=== PATIENT | male | born 1970 | race Caucasian/White ===

== ENCOUNTER 2017-05-20 10:10 | Emergency (ER) | payer BC ==
[2017-05-20] MEDS ORDERED: Ondansetron 4 MG/2 ML SDV IVPUSH ONE (10:19)
[2017-05-20] MEDS ORDERED: HYDROmorphone 1 MG/ML Syringe IVPUSH ONE (10:19)
[2017-05-20] MEDS ORDERED: Sodium Chloride 0.9% 1,000 ML IV SCH ×2 (10:30→12:30)
[2017-05-20] MEDS ORDERED: Sodium Chloride 0.9% 10 ML Syringe FLUSH PRN (10:32)
[2017-05-20] MEDS ORDERED: Ketorolac 30 MG/ML SDV IVPUSH ONE (12:22)
[2017-05-20] MEDS ORDERED: Tamsulosin 0.4 MG Cap.ER PO SCH (12:30)
--- NOTE | 2017-05-20 12:31 | EDM.PDOC ---
ED HPI GENERAL MEDICAL PROBLEM - General Chief Complaint: Genitourinary Problem Stated Complaint: KIDNEY STONES POSSIBLE Time Seen by Provider: 05/20/17 10:35 Source of Information: Reports: Patient History Limitations: Reports: No Limitations - History of Present Illness INITIAL COMMENTS - FREE TEXT/NARRATIVE: pt arrived with very severe rt flank pain. He has been vomiting during the nite because of the severe pain. He has a previous historu of a kidney stone about 1 year ago. Onset: Today, Other ( during the nite. ) Duration: Hour(s):, Getting Worse Location: Reports: Abdomen Associated Symptoms: Reports: Other ( vomiting and severe rt flank pain) - Related Data Allergies Allergy/AdvReac Type Severity Reaction Status Date / Time No Known Allergies Allergy Verified 05/20/17 10:30 Home Meds: Home Meds Lisinopril/Hydrochlorothiazide [Lisinopril-Hctz 10-12.5 mg Tab] 05/20/17 [ History] Metoprolol Succinate [Metoprolol Succinate] 05/20/17 [History] Past Medical History Cardiovascular History: Reports: High Cholesterol, Hypertension Genitourinary History: Reports: Renal Calculus Social & Family History - Tobacco Use Smoking Status *Q: Never Smoker ED ROS GENERAL - Review of Systems Review Of Systems: See Below Constitutional: Reports: No Symptoms HEENT: Reports: No Symptoms Respiratory: Reports: No Symptoms Cardiovascular: Reports: No Symptoms Endocrine: Reports: No Symptoms GI/Abdominal: Reports: Other ( severe rt flank pain extending into the abdoman. ) : Reports: Flank Pain Musculoskeletal: Reports: No Symptoms Skin: Reports: No Symptoms ED EXAM, RENAL/ - Physical Exam Exam: See Below Text/Narrative:: pt has severe rt flank pain with sig vomiting. Exam Limited By: No Limitations General Appearance: Alert, Severe Distress, Active Emesis Ears: Normal TMs Nose: Normal Inspection Throat/Mouth: Normal Inspection Head: Atraumatic Neck: Normal Inspection Respiratory/Chest: No Respiratory Distress Cardiovascular: Regular Rate, Rhythm GI/Abdominal: Other ( severe left flank pin with extention into the abdoman. His rt upper nd lower abdoman is tender. ) (Male) Exam: Deferred Rectal (Males) Exam: Deferred Back Exam: Normal Inspection Extremities: Normal Inspection Neurological: Alert, Oriented, Normal Cognition Psychiatric: Anxious Course - Vital Signs Last Recorded V/S: Last Vital Signs Temp 37.4 C 05/20/17 10:38 Pulse 72 05/20/17 10:38 Resp 22 H 05/20/17 10:38 BP 149/80 H 05/20/17 10:38 Pulse Ox 99 05/20/17 10:38 - Orders/Labs/Meds Labs: Laboratory Tests 05/20/17 05/20/17 05/20/17 Range/Units 10:19 10:19 10:57 WBC 19.3 H (4.5-11.0) K/uL RBC 5.17 (4.30-5.90) M/uL Hgb 16.1 H (12.0-15.0) g/dL Hct 43.6 (40.0-54.0) % MCV 84 (80-98) fL MCH 31 (27-31) pg MCHC 37 H (32-36) % Plt Count 200 (150-400) K/uL Neut % (Auto) 89 H (36-66) % Lymph % (Auto) 4 L (24-44) % [place] % (Auto) 7 H (2-6) % Eos % (Auto) 0 L (2-4) % Baso % (Auto) 0 (0-1) % Sodium 140 (140-148) mmol/L Potassium 3.9 (3.6-5.2) mmol/L Chloride 104 (100-108) mmol/L Carbon Dioxide 22 (21-32) mmol/L Anion Gap 13.8 (5.0-14.0) mmol/L BUN 18 (7-18) mg/dL Creatinine 1.5 H (0.8-1.3) mg/dL Est Cr Clr Drug Dosing 54.35 mL/min Estimated GFR (MDRD) 50 L (>60) Glucose 149 H (74-106) mg/dL Calcium 8.6 (8.5-10.1) mg/dL Total Bilirubin 0.6 (0.2-1.0) mg/dL AST 20 (15-37) U/L ALT 28 (12-78) U/L Alkaline Phosphatase 57 (46-116) U/L C-Reactive Protein 0.13 (0.0-0.3) mg/dL Total Protein 7.7 (6.4-8.2) g/dL Albumin 4.0 (3.4-5.0) g/dL Globulin 3.7 H (2.3-3.5) g/dL Albumin/Globulin Ratio 1.1 L (1.2-2.2) Urine Color Urine Appearance Urine pH (4.5-8.0) Ur Specific [place] (1.008-1.030) Urine Protein (NEGATIVE) mg/dL Urine Glucose (UA) (NEGATIVE) mg/dL Urine Ketones (NEGATIVE) mg/dL Urine Occult Blood (NEGATIVE) Urine Nitrite (NEGAITVE) Urine Bilirubin (NEGATIVE) Urine Urobilinogen (NORMAL) mg/dL Ur Leukocyte Esterase (NEGATIVE) Urine RBC (0-5) Urine WBC (0-5) Ur Epithelial Cells Amorphous Sediment Urine Bacteria Urine Mucus Urine Other 05/20/17 Range/Units 13:08 WBC (4.5-11.0) K/uL RBC (4.30-5.90) M/uL Hgb (12.0-15.0) g/dL Hct (40.0-54.0) % MCV (80-98) fL MCH (27-31) pg MCHC (32-36) % Plt Count (150-400) K/uL Neut % (Auto) (36-66) % Lymph % (Auto) (24-44) % [place] % (Auto) (2-6) % Eos % (Auto) (2-4) % Baso % (Auto) (0-1) % Sodium (140-148) mmol/L Potassium (3.6-5.2) mmol/L Chloride (100-108) mmol/L Carbon Dioxide (21-32) mmol/L Anion Gap (5.0-14.0) mmol/L BUN (7-18) mg/dL Creatinine (0.8-1.3) mg/dL Est Cr Clr Drug Dosing mL/min Estimated GFR (MDRD) (>60) Glucose (74-106) mg/dL Calcium (8.5-10.1) mg/dL Total Bilirubin (0.2-1.0) mg/dL AST (15-37) U/L ALT (12-78) U/L Alkaline Phosphatase (46-116) U/L C-Reactive Protein (0.0-0.3) mg/dL Total Protein (6.4-8.2) g/dL Albumin (3.4-5.0) g/dL Globulin (2.3-3.5) g/dL Albumin/Globulin Ratio (1.2-2.2) Urine Color Yellow Urine Appearance Cloudy Urine pH 5.0 (4.5-8.0) Ur Specific [place] 1.020 (1.008-1.030) Urine Protein Negative (NEGATIVE) mg/dL Urine Glucose (UA) Normal (NEGATIVE) mg/dL Urine Ketones Negative (NEGATIVE) mg/dL Urine Occult Blood Large (NEGATIVE) Urine Nitrite Negative (NEGAITVE) Urine Bilirubin Negative (NEGATIVE) Urine Urobilinogen Normal (NORMAL) mg/dL Ur Leukocyte Esterase Negative (NEGATIVE) Urine RBC 40-50 H (0-5) Urine WBC 0-5 (0-5) Ur Epithelial Cells Rare Amorphous Sediment Not seen Urine Bacteria Not seen Urine Mucus Not seen Urine Other Meds: Medications Discontinued Medications Generic Name Dose Route Start Last Admin Trade Name Freq PRN Reason Stop Dose Admin Hydromorphone HCl 1 mg 05/20/17 10:19 05/20/17 10:33 Dilaudid IVPUSH 05/20/17 10:20 1 mg ONETIME ONE Administration Sodium Chloride 1,000 mls @ 999 mls/hr 05/20/17 10:30 05/20/17 10:33 Normal Saline IV 999 mls/hr ASDIRECTED KISHORE Administration Sodium Chloride 1,000 mls @ 999 mls/hr 05/20/17 12:30 05/20/17 13:49 Normal Saline IV 999 mls/hr ASDIRECTED KISHORE Administration Ketorolac Tromethamine 30 mg 05/20/17 12:22 Toradol IVPUSH 05/20/17 12:23 ONETIME ONE Ondansetron HCl 4 mg 05/20/17 10:19 05/20/17 10:33 Zofran IVPUSH 05/20/17 10:20 4 mg ONETIME ONE Administration Sodium Chloride 10 ml 05/20/17 10:32 05/20/17 10:33 Saline Flush FLUSH 10 ml ASDIRECTED PRN Administration IV Use Tamsulosin HCl 0.4 mg 05/20/17 12:30 05/20/17 12:34 Flomax PO 0.4 mg PCBREAKFAST KISHORE Administration - Re-Assessments/Exams Free Text/Narrative Re-Assessment/Exam: 05/20/17 12:30 pt has a 19,00 wbc. His is quite dry. He has abhilash given 2 liters of fluid. His creatnine is mildly elevated. A cat scan of the abdoman showed a 6 mm stone in the mid rt ureter. This may or may not pass. Departure - Departure Time of Disposition: 10:40 Disposition: Home, Self-Care 01 Condition: Fair Clinical Impression: Ureteral calculi, Dehydration - Discharge Information Instructions: Dehydration, Adult, [id number], Flank Pain, [id number] Referrals: Jeronimo Muñoz MD [Primary Care Provider] - Forms: ED Department Discharge Care Plan Goals: push fluids, strain all urine, flomax .4, --daily, torodol 10mg q6h prn for pain , percocet 5/325 q6h prn for severe pain. contact Dr Muñoz if stone is not passing.
== END 2017-05-20 13:50 | disposition home or self-care (01) ==
LOC: JP.ED 10:10
DX: N13.2 Hydronephrosis with renal and ureteral calculous obstruction (principal); E86.0 Dehydration; I10 Essential (primary) hypertension; E78.00 Pure hypercholesterolemia, unspecified
CPT/HCPCS: 36415; 74176; 80053; 81001; 85025; 86140; 96361; 96374; 96375; 99284; A9270; J1170; J2405; J7040; J7050

== ENCOUNTER 2019-01-12 11:32 | Emergency (ER) | payer SELFPAY ==
[2019-01-12] MEDS ORDERED: Proparacaine 0.5% Ophth Soln 15 ML Bottle EYERT ONE (12:10)
--- NOTE | 2019-01-12 12:12 | EDM.PDOC ---
ED HPI GENERAL MEDICAL PROBLEM - General Chief Complaint: Eye Problems Stated Complaint: SOMETHING IN RIGHT EYE Time Seen by Provider: 01/12/19 11:35 Source of Information: Reports: Patient History Limitations: Reports: No Limitations - History of Present Illness INITIAL COMMENTS - FREE TEXT/NARRATIVE: 48-year-old male feels like there is something in his right eye for the last 2 days, today he was very watery so he decided to have it checked. No significant pain but there is some erythema. No other complaints. Onset: Gradual Duration: Day(s): (2 days) Location: Reports: Other (Right eye) Associated Symptoms: Reports: No Other Symptoms - Related Data Allergies Allergy/AdvReac Type Severity Reaction Status Date / Time No Known Allergies Allergy Verified 01/12/19 11:52 Home Meds: Home Meds Lisinopril/Hydrochlorothiazide [Lisinopril-Hctz 10-12.5 mg Tab] 05/20/17 [ History] Metoprolol Succinate 05/20/17 [History] Past Medical History HEENT History: Reports: Impaired Vision Cardiovascular History: Reports: High Cholesterol, Hypertension Genitourinary History: Reports: Renal Calculus Musculoskeletal History: Reports: Gout Endocrine/Metabolic History: Reports: Obesity/BMI 30+ - Past Surgical History Head Surgeries/Procedures: Reports: None HEENT Surgical History: Reports: Tonsillectomy Cardiovascular Surgical History: Reports: None Endocrine Surgical History: Reports: None Musculoskeletal Surgical History: Reports: None Dermatological Surgical History: Reports: None Social & Family History - Tobacco Use Smoking Status *Q: Never Smoker Second Hand Smoke Exposure: No - Caffeine Use Caffeine Use: Reports: Soda - Recreational Drug Use Recreational Drug Use: No ED ROS GENERAL - Review of Systems Review Of Systems: See Below Constitutional: Denies: Fever, Chills HEENT: Reports: Eye Pain Respiratory: Denies: Shortness of Breath GI/Abdominal: Reports: No Symptoms Skin: Reports: No Symptoms Neurological: Denies: Headache ED EXAM GENERAL W FULL EYE - Physical Exam Exam: See Below Exam Limited By: No Limitations General Appearance: Alert, No Apparent Distress Eye Exam: Right Eye: Conjunctival Injection Eyelids: Right: Erythema (Mild conjunctival erythema) Cornea Exam: Right: Normal Appearance (No injury seen with and without forcing staining) Pupillary Reaction: Bilateral: Brisk Anterior Chamber: Right: Normal Appearance Respiratory/Chest: No Respiratory Distress Course - Vital Signs Last Recorded V/S: Last Vital Signs Temp 97.3 F 01/12/19 11:53 Pulse 55 L 01/12/19 11:53 Resp 16 01/12/19 11:53 BP 173/100 H 01/12/19 11:53 Pulse Ox 98 01/12/19 11:53 - Orders/Labs/Meds Meds: Medications Discontinued Medications Generic Name Dose Route Start Last Admin Trade Name [place] PRN Reason Stop Dose Admin Proparacaine HCl 1 ml 01/12/19 12:10 01/12/19 12:30 Proparacaine 0.5% Ophth Soln EYERT 01/12/19 12:11 1 drop ONETIME ONE Administration - Re-Assessments/Exams Free Text/Narrative Re-Assessment/Exam: 01/12/19 12:26 Proparacaine eyedrops were placed in the right eye and his symptoms resolved. Fluorescein staining showed no abnormalities of the cornea. Slit lamp exam showed no foreign body or damage to the cornea, I inverted the upper lid and examined the lower lid and I did not see a foreign body. Departure - Departure Time of Disposition: 12:40 Disposition: Home, Self-Care 01 Condition: Good Clinical Impression: Acute conjunctivitis, right eye Qualifiers: Acute conjunctivitis type: unspecified Qualified Code(s): H10.31 - Unspecified acute conjunctivitis, right eye - Discharge Information Instructions: Bacterial Conjunctivitis, [id number] Referrals: Violet Zapata MD [Primary Care Provider] - Forms: ED Department Discharge Care Plan Goals: Use drops in her right eye 2 drops 4 times a day for the next 5 days. Recheck at the eye doctor in the next 1-2 days if not improving.
== END 2019-01-12 12:40 | disposition home or self-care (01) ==
LOC: JP.ED 11:32
DX: H10.31 Unspecified acute conjunctivitis, right eye (principal); I10 Essential (primary) hypertension; E78.00 Pure hypercholesterolemia, unspecified
CPT/HCPCS: 99283; A9270

== ENCOUNTER 2019-09-19 08:38 | Day surgery (SDC) | payer OTHER ==
[2019-09-19] MEDS ORDERED: Dextrose 5%-Lactated Ringers 1,000 ML IV SCH (09:00)
[2019-09-19] MEDS ORDERED: fentaNYL 100 MCG/2 ML SDV ONE (09:52)
[2019-09-19] MEDS ORDERED: Propofol 200 MG/20 ML SDV ONE (09:52)
[2019-09-19] MEDS ORDERED: Midazolam 1 MG/ML 2 ML SDV ONE (09:52)
--- NOTE | 2019-09-29 12:27 | OR ---
DATE OF PROCEDURE: 09/19/2019 SURGEON: Holden Steven MD PREOPERATIVE DIAGNOSIS: Indications for screening colonoscopy. POSTOPERATIVE DIAGNOSIS: Large polyp in ascending colon. PROCEDURE: Colonoscopy with polypectomy by snare technique. ANESTHESIA: IV sedation. INDICATION FOR PROCEDURE: A 49-year-old presenting for an initial screening colonoscopy. Potential risks of the procedure including bleeding and perforation were discussed, and the patient wishes to proceed. DETAILS OF PROCEDURE: The patient was taken to the operating room and placed in a left lateral decubitus position. IV sedation was administered, after which, the initial digital rectal exam was performed and was unremarkable. Colonoscope was passed into the rectum with retroflexion revealing uncomplicated hemorrhoids. The scope was then passed into the level of cecum. The prep was fairly good with only a small amount of liquid stool being present. To that level, there were no diverticula or areas of colitis. The patient was noted to have fairly large roughly 2 cm polyp in the ascending colon. This was removed by snare technique including 3 fragments, all of which were sent collectively for histologic evaluation. The base appeared to be well cleared of any polypoid tissue and hemostasis appeared to be satisfactory. The scope was then withdrawn and no additional abnormalities were noted and the procedure was then concluded. Assuming this is a benign polyp, the patient can undergo a repeat colonoscopy in 2 years. Holden Steven MD /[id number]
== END 2019-09-19 12:05 | disposition home or self-care (01) ==
LOC: JP.SDS 08:38
PROVIDERS: ATTEND Surgery
DX: Z12.11 Encounter for screening for malignant neoplasm of colon (principal); D12.2 Benign neoplasm of ascending colon; I10 Essential (primary) hypertension; G47.33 Obstructive sleep apnea (adult) (pediatric); E66.9 Obesity, unspecified; Z68.42 Body mass index [BMI] 45.0-49.9, adult; Z99.89 Dependence on other enabling machines and devices
CPT/HCPCS: 45385; 88302; J2250; J2704; J3010; J7121